=== PATIENT | male | born 1995 | race African-American/Black ===

== ENCOUNTER 2024-12-31 08:28 | Emergency (ER) | payer SELFPAY ==
[~2024-12-31] VITALS: Ht 180.3 cm; Wt 180.0 kg
[2024-12-31 08:32] VITALS: O2SAT 100
[2024-12-31 08:38] VITALS: BP 136/81; PULSE 88; RESP 16; TEMP 36.5; O2SAT 96
[2024-12-31] MEDS ORDERED: IBUP-2029 MT (09:45)
[2024-12-31] MEDS ORDERED: MECL-299 MT (09:45)
== END 2024-12-31 10:08 | disposition home or self-care (01) ==
LOC: ER 08:28
DX: B34.9 Viral infection, unspecified (principal); R42 Dizziness and giddiness; Z79.899 Other long term (current) drug therapy
CPT/HCPCS: 71045; 99283